=== PATIENT | female | born 1995 | race Caucasian/White ===

== ENCOUNTER → 2020-01-16 09:00 | Outpatient (CLI) | payer BC, SELFPAY | PROVIDERS: PCP Pediatrics; Referring Provider Nurse Practitioner; Visit Provider Nurse Practitioner | DX: J02.9 Acute pharyngitis, unspecified (principal); R06.02 Shortness of breath; Z20.828 Contact with and (suspected) exposure to other viral communicable diseases | CPT/HCPCS: 87635; G2023; U0003 ==